=== PATIENT | female | born 1965 | race Caucasian/White ===

== ENCOUNTER 2017-10-17 07:55 | Emergency (ER) | payer MEDICAID, SELFPAY ==
[2017-10-17 07:57] VITALS: BP 164/112; PULSE 97; RESP 16; TEMP 36.3; O2SAT 96; BMI 20.9
[2017-10-17 08:51] LABS: Amphetamine Urine VISTA NEGATIVE (<1000 ng/mL); Barbiturate Urine VISTA NEGATIVE (< 200 ng/mL); Benzodiazepine Urine VISTA NEGATIVE (< 200 ng/mL); Cocaine Urine VISTA NEGATIVE (< 300 ng/mL); Ecstacy Urine VISTA NEGATIVE (< 500 ng/mL); Methadone Urine VISTA NEGATIVE (< 300 ng/mL); PCP Urine VISTA NEGATIVE (< 25 ng/mL); THC Urine VISTA NEGATIVE (< 50 ng/mL); Vista UDS pH Range 6
[2017-10-17 08:52] LABS: Absolute Lymphocyte Count 2.12 X10^3/ul (0.83-4.51); Absolute Neutrophil Count 5.9 X10^3/uL (2.0-7.7); Basophil# 0.11 X10^3/uL; Basophil% 1.2 % (0-1); Eosinophil# 0.28 X10^3/uL; Hematocrit 43.4 % (37-47); Hemoglobin 15.5 g/dl (12.0-15.0); Lymphocyte # 2.12 X10^3/ul (4.0); Lymphocyte % 22.5 % (19-41); Mean Corp Hgb Conc 35.7 g/gl (32-36); Mean Corpuscular Hgb 35.2 pg (27.0-32.0); Mean Corpuscular Volume 98.6 fL (81-99); Mean Platelet Vol. 9.6 fl (6.2-12.0); Monocyte# 0.95 X10^3/uL; Monocyte% 10.1 % (0-10); Neutrophil # 5.94 X10^3/uL (2.7-7.7); POSITIVE COUNT NO; POSITIVE DIFFERENTIAL NO; POSITIVE MORPHOLOGY NO; Platelet Count 371 K/mm3 (150-450); RBC Distribution Width CV 13.2 % (11.6-14.6); RBC Distribution Width SD 47.2 fl (35.1-43.9); White Blood Count 9.4 K/mm3 (4.4-11.0)
[2017-10-17 09:07] LABS: AST(SGOT) 34 U/L (15-37); Alanine Aminotransfer ALT/SGPT 33 U/L (13-56); Albumin, Serum 4.3 g/dL (3.2-5.0); Alkaline Phosphatase 118 U/L (45-117); Anion Gap 11 (5-15); BUN 6 mg/dL (7-18); BUN/Creat Ratio 9.6 RATIO (10-20); Chloride 104 mmol/L (98-107); Creatinine, Serum 0.63 mg/dL (0.55-1.02); EST Glomerular Filtration Rate 106 mL/min (>60); Est Glom Filt Rate - Afr Amer 128 mL/min (>60); Estimated Creatinine Clearance 78.82 ml/min; Globulin 4.1 g/dL (2.2-4.2); Glucose 98 mg/dL (74-106); Potassium 3.8 mmol/L (3.5-5.1); Protein, Total 8.4 g/dL (6.4-8.2); Sodium Level 137 mmol/L (136-145)
--- NOTE | 2017-10-17 09:43 | ED.VISSUMM ---
- ER Visit Summary Date of Service: 10/17/17 Chief Complaint: [Request for detox from alcohol History of Present Illness: The patient is a 51 F [presents to the emergency department stating that she wants detox from alcohol. Patient states her last drink was around 6 AM. Patient drinks vodka and beer. Patient states that she does not want to drink anymore. Patient states that her son has gone through heroin detox at this hospital and she recently kicked him out of the house. Patient denies feeling suicidal. She denies hallucinations. She denies feeling shaky currently or diaphoretic. She does not feel like she is going through withdrawal currently. She is not complaining of any physical symptoms. She denies recent illness.] Physical Examination: [HEENT-PERRLA, EOMI. Cranial nerves II through XII grossly intact. TMs clear. Mucous membranes moist. No adenopathy. Cardiovascular-regular rate and rhythm without murmur or ectopy Lungs-clear to auscultation, chest wall stable without crepitus or subcu emphysema Abdomen-normoactive bowel sounds, soft, nontender, no rebound or rigidity, no peritoneal signs. Neuro [id number]-[id number] and heel nguyễn testing within normal limits, negative Romberg, negative pronator drift, fundi benign. Extremities-intact ?4, normal range of motion, normal pulses, atraumatic] Test Results: [CBC with differential obtained showed a white count of 9.4, hemoglobin 15, hematocrit 43, platelets 371. Chemistries unremarkable. LFTs unremarkable. Alcohol was 261. Toxicology screen was negative.] Emergency Department Course and Treatment: [Patient was evaluated by counseling center and patient at this point does not want to go to any other facility for detox. Patient was given phone numbers for [facility] and she will call on Thursday for follow-up.] Patient not currently going through withdrawal. Treatment Plan: [Follow-up with [facility] in 2 days.] Disposition: [Discharged home in stable condition] Impression: [Alcohol intoxication Alcohol abuse] This note was generated with [employer] dictation software. It may contain incorrect words, spelling, and punctuation that were not noted in review of the chart prior to signing ED Disposition - Plan for ED Patient: Chief Complaint: Substance Abuse Referrals: Mel Silverman MD [Primary Care Provider] -
--- NOTE | 2017-10-17 09:46 | ED.DCSUM_ITS ---
- ER Visit Summary Date of Service: 10/17/17 Chief Complaint: [Request for detox from alcohol History of Present Illness: The patient is a 51 F [presents to the emergency department stating that she wants detox from alcohol. Patient states her last drink was around 6 AM. Patient drinks vodka and beer. Patient states that she does not want to drink anymore. Patient states that her son has gone through heroin detox at this hospital and she recently kicked him out of the house. Patient denies feeling suicidal. She denies hallucinations. She denies feeling shaky currently or diaphoretic. She does not feel like she is going through withdrawal currently. She is not complaining of any physical symptoms. She denies recent illness.] Physical Examination: [HEENT-PERRLA, EOMI. Cranial nerves II through XII grossly intact. TMs clear. Mucous membranes moist. No adenopathy. Cardiovascular-regular rate and rhythm without murmur or ectopy Lungs-clear to auscultation, chest wall stable without crepitus or subcu emphysema Abdomen-normoactive bowel sounds, soft, nontender, no rebound or rigidity, no peritoneal signs. Neuro pgvq-puofea-rcme and heel nguyễn testing within normal limits, negative Romberg, negative pronator drift, fundi benign. Extremities-intact ?4, normal range of motion, normal pulses, atraumatic] Test Results: [CBC with differential obtained showed a white count of 9.4, hemoglobin 15, hematocrit 43, platelets 371. Chemistries unremarkable. LFTs unremarkable. Alcohol was 261. Toxicology screen was negative.] Emergency Department Course and Treatment: [Patient was evaluated by counseling center and patient at this point does not want to go to any other facility for detox. Patient was given phone numbers for [facility] and she will call on Thursday for follow-up.] Patient not currently going through withdrawal. Treatment Plan: [Follow-up with [facility] in 2 days.] Disposition: [Discharged home in stable condition] Impression: [Alcohol intoxication Alcohol abuse] This note was generated with [employer] dictation software. It may contain incorrect words, spelling, and punctuation that were not noted in review of the chart prior to signing ED Disposition - Plan for ED Patient: Chief Complaint: Substance Abuse Referrals: Mel Silverman MD [Primary Care Provider] -
--- NOTE | 2017-10-17 10:45 | ED.DEP ---
ED Disposition - Plan for ED Patient: Chief Complaint: Substance Abuse Instructions: ED Alcohol Abuse Referrals: Mel Silverman MD [Primary Care Provider] - Additional Instructions: Follow up with [facility] on Thursday.
[2017-10-17 11:14] VITALS: BP 152/106; PULSE 94; RESP 16; O2SAT 99
== END 2017-10-17 11:15 | disposition home or self-care (01) ==
PROVIDERS: Emergency Provider Emergency Medicine; Family Provider Family Medicine; PCP Family Medicine
DX: F10.129 Alcohol abuse with intoxication, unspecified (principal); Y90.9 Presence of alcohol in blood, level not specified; J44.9 Chronic obstructive pulmonary disease, unspecified; Z72.0 Tobacco use
CPT/HCPCS: 80053; 80307; 80320; 85025; 99282; G0480